=== PATIENT | male | born 1935 | race Caucasian/White ===

== ENCOUNTER → 2017-09-18 | Outpatient (CLI) | payer MEDICARE ==
--- NOTE | 2017-09-18 11:25 | Diagnostic Imaging Report ---
PROCEDURE:US RETROPERITONEAL ( KIDNEY ). COMPARISON:Patients [facility], US, US RETROPERITONEAL ( KIDNEY )., 04/26/2016, 10:36. INDICATIONS:CKD STAGE 3 TECHNIQUE: Whittaker-scale and color sonographic images of the bilateral kidneys and bladder where obtained in transverse and longitudinal planes. FINDINGS: RIGHT KIDNEY: Length: 11 cm Cysts: Multiple, measuring up to 4 cm Solid masses: None Stones: None Hydronephrosis: None Echogenicity: Diffusely hyperechoic LEFT KIDNEY: Length: 11.3 cm Cysts: Multiple, measuring up to 3.3 cm Solid masses: None Stones: None Hydronephrosis: None Echogenicity: Diffusely hyperechoic Bladder: Diffuse bladder wall thickening. Ureteral jets are visible. Prostate: Measures 5.6 x 4.9 x 4.6 cm. The contours are lobulated CONCLUSION: Increased renal echotexture consistent with medical renal disease. Bilateral renal cysts. Thickening of the bladder wall suggestive of outlet obstruction from prostate hypertrophy Dictated by: Izaiah Okeefe M.D. on 09/18/2017 at 11:26 Electronically approved by: Izaiah Okeefe M.D. on 09/18/2017 at 11:26
--- NOTE | 2017-09-18 11:42 | Diagnostic Imaging Report ---
PROCEDURE: RENAL DOPPLER ULTRASOUND COMPARISON:None. INDICATIONS:Hypertension FINDINGS: Multiple sagittal and axial images of the right and left kidneys were obtained. RIGHT KIDNEY: The right kidney measures 12.0 cm. The cortical thickness is 1.3 cm. The right kidney has increased echogenicity. There are no masses, hydronephrosis or calculi. The highest right main renal artery PSV is 91.7 cm/sec. The highest right hilar artery PSV is 67.2 cm/sec. The highest right arcuate artery PSV is 68.4 cm/sec. LEFT KIDNEY: The left kidney measures 12.0 cm. The cortical thickness is 1.2 cm. The left kidney has increased echogenicity. There are no masses, hydronephrosis or calculi. The highest left main renal artery PSV is 37.4 cm/sec. The highest left hilar artery PSV is 41 cm/sec. The highest left arcuate artery PSV is 52 cm/sec. The abdominal aorta PSV is 53.2 cm/sec. The right renal artery/aorta ratio is 1.7. The left renal artery/aorta ratio is 1.2. The right and left renal veins are patent. The bladder is unremarkable. CONCLUSION: 1. Increased renal cortical echogenicity may represent medical renal disease. 2. No sonographic evidence for renal artery stenosis. Dictated by: Shemar Diaz M.D. on 09/18/2017 at 11:42 Electronically approved by: Shemar Diaz M.D. on 09/18/2017 at 11:42
== END ==
LOC: US 08:19
PROVIDERS: ATTEND Internal Medicine Nephrology
DX: N18.3 Chronic kidney disease, stage 3 (moderate) (principal)
CPT/HCPCS: 76770; 93976

== ENCOUNTER → 2018-04-10 | Outpatient (CLI) | payer MEDICARE ==
--- NOTE | 2018-04-10 12:51 | Diagnostic Imaging Report ---
EXAM: CT Chest WITHOUT contrast 04/10/2018 10:04 AM INDICATION: \[id number] \S\[id number] \S\IDIOPATHIC INTRESTITIAL PNEUMONIA COMPARISON: None Technique: CT scan of the chest WITHOUT intravenous contrast, using standard protocol. Thin collimation scanning during the inspiratory and expiratory phases as well as in the prone position was performed. Sagittal and coronal multiplanar reformations were obtained. Coronal and sagittal reformats are provided. IV CONTRAST: None ORAL CONTRAST: None COMPLICATIONS: None RADIATION DOSE: Total DLP: 2114.9 mGy*cm Estimated effective dose: (DLP x 0.015 x size factor) mSv CTDIvol has been reviewed. It is below the limits set by the Radiation Protocol Committee (RPC). FINDINGS: LINES/ TUBES: None. LUNGS AND AIRWAYS: Incidental right upper lobe Azygous fissure. Mild bilateral central lower lobe predominant bronchiectasis. Subpleural reticulation of the lungs in both posterior lower lobes. Few scattered 2 to 3 mm peripheral pleural-based nodules, some of them calcified, for example in the right lower lobe on series 2, image 114. Otherwise, no consolidation, septal thickening, architectural distortion, or honeycombing. Few scattered thin-walled cystic changes throughout the lungs measuring up to 5 mm. Mosaic attenuation of the lungs consistent with bilateral air trapping. PLEURA: Multiple right greater than left calcified pleural plaques along both hemidiaphragms. No nodular pleural thickening or pneumothorax. Trace left pleural effusion. HEART AND MEDIASTINUM: Few nonspecific subcentimeter thyroid nodules measuring up to 0.7 cm on the right. Multiple nonspecific subcentimeter noncalcified mediastinal lymph nodes. Cardiomegaly. Trace pericardial effusion. Diffuse coronary artery calcifications. The status post CABG. Ectasia of the ascending thoracic aorta (4.5 cm). Moderate atherosclerotic calcifications of the aortic arch and descending thoracic segment. The main pulmonary artery is normal in caliber, measuring 2.9 cm in diameter. UPPER ABDOMEN: 3 cm low-attenuation cyst in the upper pole of the left kidney, incompletely provided on this exam. Mild bilateral perinephric fat stranding. BONES: Multilevel degenerative changes of the thoracic spine. SOFT TISSUES: Unremarkable. IMPRESSION: 1. Bilateral few calcified pleural plaques with mild nonspecific subpleural reticulation of the lungs suggestive of asbestos exposure or sequela of prior granulomatous disease. 2. Mild central bilateral bronchiectasis. No honeycombing. 3. 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 Recommend follow-up CT chest high resolution in 6 months. Signed by: Dr. Silvina Caraballo M.D. on 04/10/2018 12:48 PM
== END ==
LOC: CT 09:57
PROVIDERS: ATTEND Internal Medicine Pulmonary Disease
DX: J84.111 Idiopathic interstitial pneumonia, not otherwise specified (principal); Z86.711 Personal history of pulmonary embolism
CPT/HCPCS: 71250

== ENCOUNTER → 2018-05-11 | Outpatient (CLI) | payer MEDICARE ==
--- NOTE | 2018-05-11 11:24 | Diagnostic Imaging Report ---
EXAMINATION: Renal Doppler ultrasound. CLINICAL HISTORY :Hypertension COMPARISON: <None available.> TECHNIQUE: Grayscale and color Doppler evaluation of the kidneys and bladder was performed in transverse and longitudinal planes. Doppler interrogation of the main, hilar, segmental and arcuate renal arteries bilaterally as well as evaluation of the aorta were performed. DISCUSSION: RIGHT KIDNEY: The right kidney measures 12.1 cm in length and shows increased echogenicity. No hydronephrosis, shadowing calculi or solid mass lesions. Multiple cysts including the largest 4.5 cm interpolar region and 2.5 cm superior pole. Right main renal artery PSV is 68 cm/sec. Highest right segmental artery PSV is 20 cm/sec. Arterial waveforms are normal. The right renal artery PSV/aortic PSV ratio is 1.1. LEFT KIDNEY: The left kidney measures 11.3 cm in length and shows increased echogenicity. No hydronephrosis, shadowing calculi or solid mass lesions. Multiple cysts including the largest 3.4 cm inferior pole and 3 cm superior pole. Left main renal artery PSV is 62 cm/sec. Highest left segmental artery PSV is 43cm/sec. Arterial waveforms are normal. The left renal artery PSV/aortic PSV ratio is 1.0. Abdominal aortic PSV is 64 cm/sec. BLADDER: Unremarkable. Prostate is enlarged measuring 69 cc. IMPRESSION: Bilateral echogenic kidneys secondary to chronic medical renal disease. No obstruction. Bilateral simple renal cysts. No renal arteries stenosis Signed by: Dr. Adrián Collier M.D. on 05/11/2018 11:21 AM
== END ==
LOC: US 06:58
PROVIDERS: ATTEND Internal Medicine Nephrology
DX: N18.3 Chronic kidney disease, stage 3 (moderate) (principal)
CPT/HCPCS: 76770; 93976

== ENCOUNTER → 2021-04-05 | Outpatient (CLI) | payer MEDICARE | LOC: US 07:34 | PROVIDERS: ATTEND Internal Medicine Nephrology | DX: N18.9 Chronic kidney disease, unspecified (principal); N28.1 Cyst of kidney, acquired | CPT/HCPCS: 76770; 93976 ==

== ENCOUNTER 2022-04-13 16:38 | Inpatient (IN) | payer MEDICARE ==
[~2022-04-13] VITALS: Ht 193 cm; Wt 97.5 kg
[2022-04-13] MEDS ORDERED: ACETAMINOPHEN 325 MG TAB PO PRN (17:45)
[2022-04-13] MEDS ORDERED: SODIUM CHLORIDE 0.9% IV ONE (17:45)
[2022-04-13] MEDS ORDERED: SODIUM CHLORIDE FLUSH 10 ML SYR INJ PRN (17:45)
[2022-04-13] MEDS ORDERED: DIPHENHYDRAMINE HCL INJ 50 MG/ML VIAL IV PRN (17:45)
[2022-04-13] MEDS ORDERED: FUROSEMIDE INJ 10 MG/ML 4 ML VIAL IV ONE (17:45)
[2022-04-13] MEDS ORDERED: ELIQUIS2.5 MG PO (17:52)
[2022-04-13] MEDS ORDERED: FAMOTIDINE20 MG PO (17:54)
[2022-04-13] MEDS ORDERED: CLOPIDOGREL75 MG PO (17:54)
[2022-04-13] MEDS ORDERED: METOPROLOL TART50 MG PO (17:54)
[2022-04-13] MEDS ORDERED: TERAZOSIN HCL5 MG PO (17:54)
[2022-04-13] MEDS ORDERED: FARXIGA5 MG PO (17:56)
[2022-04-13] MEDS ORDERED: FUROSEMIDE40 MG PO (17:56)
[2022-04-13] MEDS ORDERED: DICYCLOMINE HCL10 MG PO (17:56)
[2022-04-13] MEDS ORDERED: CLONAZEPAM0.5 MG PO (17:56)
[2022-04-13] MEDS ORDERED: SODIUM CHLORIDE 0.9% 250ML 250 ML IV ONE (20:30)
[2022-04-13] MEDS ORDERED: HYDRALAZINE HCL 20 MG/ML VIAL IV PRN (20:45)
[2022-04-13 20:50] LABS: % IRON SATURATION 2 % (15-50); IRON 10 ug/dL (65-175); TOTAL IRON BINDING CAPACITY 407 ug/dL (261-478); TRANSFERRIN 291 mg/dL (174-364)
[2022-04-13 21:00] VITALS: BP 139/69
[2022-04-13] MEDS: CLONAZEPAM 0.5 MG TAB PO PRN (23:19)
[2022-04-14] VITALS (9 sets, daily range): BP systolic 111–144; BP diastolic 67–84
[2022-04-14] MEDS: METOPROLOL TARTRATE 50 MG TAB PO SCH ×3 (00:09→16:36)
[2022-04-14] MEDS: FUROSEMIDE INJ 10 MG/ML 2 ML VIAL IV PRN ×3 (01:09→18:15)
[2022-04-14 05:21] LABS: BASOPHILS % 0.4 % (0.0-1.0); EOSINOPHILS # (AUTO) 0.2 (0.0-0.4); EOSINOPHILS % 3.5 % (0.0-6.0); LYMPHOCYTES # (AUTO) 1.3 (1.0-3.2); LYMPHOCYTES % 29.1 % (18.0-39.1); MEAN CORPUSCULAR HEMOGLOBIN 24.5 pg (28-32); MEAN CORPUSCULAR HGB CONC 29.2 g/dL (31-35); MEAN CORPUSCULAR VOLUME 83.8 fL (81-99); MONOCYTES # (AUTO) 0.5 (0.2-0.8); MONOCYTES % 10.1 % (4.4-11.3); NEUTROPHILS # (AUTO) 2.6 (2.1-6.9); NEUTROPHILS % 56.7 % (38.7-80.0); PLATELET COUNT 167 x10e3/uL (140-360); RED BLOOD COUNT 2.29 x10e6/uL (4.3-5.7); RED CELL DISTRIBUTION WIDTH 16.2 % (11.7-14.4)
[2022-04-14 05:38] LABS: HEMATOCRIT 19.2 % (38.2-49.6); HEMOGLOBIN 5.6 g/dL (14.0-18.0)
[2022-04-14] MEDS ORDERED: SODIUM CHLORIDE 0.9% 1000ML 1,000 ML ONE (06:16)
[2022-04-14 06:36] LABS: ANION GAP 15.2 mmol/L (8-16); CALCIUM 9.3 mg/dL (8.4-10.2); CREATININE, SERUM 3.19 mg/dL (0.72-1.25); POTASSIUM 4.2 mmol/L (3.5-5.1)
[2022-04-14] MEDS ORDERED: SODIUM CHLORIDE 0.9% 250ML 250 ML IV ONE (07:30)
[2022-04-14] MEDS ORDERED: CLOPIDOGREL BISULFATE 75 MG TAB PO SCH (09:00)
[2022-04-14] MEDS ORDERED: CLONAZEPAM 0.5 MG TAB PO SCH (09:00)
[2022-04-14] MEDS ORDERED: METOPROLOL TARTRATE 50 MG TAB PO SCH (09:00)
[2022-04-14] MEDS ORDERED: APIXAB 2.5 MG TABLET PO SCH (09:00)
[2022-04-14] MEDS: NON-FORMULARY MEDICATION (Dapagliflozin Propanediol (Farxiga) 5 MG) PO SCH (09:00)
[2022-04-14] MEDS: TERAZOSIN HCL 5 MG CAP PO SCH (09:43)
[2022-04-14] MEDS: FUROSEMIDE 40 MG TAB PO SCH (09:43)
[2022-04-14] MEDS: DICYCLOMINE HCL 10 MG CAP PO SCH ×3 (09:44→16:36)
[2022-04-14 13:52] LABS: HEMATOCRIT 20.4 % (38.2-49.6); HEMOGLOBIN 6.3 g/dL (14.0-18.0)
[2022-04-14] MEDS ORDERED: SODIUM CHLORIDE 0.9% 250ML 250 ML ONE (15:35)
[2022-04-14 19:12] LABS: HEMATOCRIT 22.6 % (38.2-49.6)
[2022-04-14 19:15] LABS: HEMOGLOBIN 6.7 g/dL (14.0-18.0)
[2022-04-14] MEDS: IRON SUCROSE 100 MG in SODIUM CHLORIDE 0.9% 100 ML IV SCH (19:24)
[2022-04-14] MEDS: CLONAZEPAM 0.5 MG TAB PO PRN (23:35)
[2022-04-15] VITALS (7 sets, daily range): BP systolic 97–123; BP diastolic 54–76
[2022-04-15 00:01] LABS: INR 1.1; PROTHROMBIN TIME 15.2 seconds (11.9-14.5)
[2022-04-15 04:56] LABS: BASOPHILS % 0.4 % (0.0-1.0); EOSINOPHILS # (AUTO) 0.2 (0.0-0.4); EOSINOPHILS % 3.3 % (0.0-6.0); HEMATOCRIT 22.1 % (38.2-49.6); LYMPHOCYTES % 22.1 % (18.0-39.1); MEAN CORPUSCULAR HGB CONC 29.9 g/dL (31-35); MEAN CORPUSCULAR VOLUME 83.7 fL (81-99); MONOCYTES # (AUTO) 0.5 (0.2-0.8); MONOCYTES % 12.1 % (4.4-11.3); NEUTROPHILS # (AUTO) 2.8 (2.1-6.9); NEUTROPHILS % 61.9 % (38.7-80.0); PLATELET COUNT 167 x10e3/uL (140-360); RED BLOOD COUNT 2.64 x10e6/uL (4.3-5.7); RED CELL DISTRIBUTION WIDTH 16.5 % (11.7-14.4)
[2022-04-15 05:00] LABS: HEMOGLOBIN 6.6 g/dL (14.0-18.0)
[2022-04-15 05:17] LABS: ANION GAP 13.7 mmol/L (8-16); CALCIUM 9.4 mg/dL (8.4-10.2); CREATININE, SERUM 3.07 mg/dL (0.72-1.25); POTASSIUM 3.7 mmol/L (3.5-5.1)
[2022-04-15 05:35] LABS: INR 1.1; PROTHROMBIN TIME 15.2 seconds (11.9-14.5)
[2022-04-15] MEDS ORDERED: FUROSEMIDE INJ 10 MG/ML 2 ML VIAL IV ONE (06:30)
[2022-04-15] MEDS ORDERED: SODIUM CHLORIDE 0.9% 250ML 250 ML IV ONE ×2 (06:30→17:00)
[2022-04-15] MEDS: TERAZOSIN HCL 5 MG CAP PO SCH (09:00)
[2022-04-15] MEDS: NON-FORMULARY MEDICATION (Dapagliflozin Propanediol (Farxiga) 5 MG) PO SCH (09:00)
[2022-04-15] MEDS: DICYCLOMINE HCL 10 MG CAP PO SCH ×3 (09:39→17:05)
[2022-04-15] MEDS: METOPROLOL TARTRATE 50 MG TAB PO SCH ×2 (09:41→17:06)
[2022-04-15] MEDS: FUROSEMIDE 40 MG TAB PO SCH (09:42)
[2022-04-15] MEDS ORDERED: SODIUM CHLORIDE 0.9% 250ML 250 ML ONE (10:51)
[2022-04-15] MEDS ORDERED: BISACODYL 5 MG TAB EC PO ONE ×3 (11:30→15:30)
[2022-04-15] MEDS ORDERED: PEG (High)/E-LYTE SOLN 4,000 ML BTL PO ONE (16:00)
[2022-04-15 16:26] LABS: HEMATOCRIT 25.5 % (38.2-49.6); HEMOGLOBIN 7.7 g/dL (14.0-18.0)
[2022-04-15] MEDS ORDERED: FUROSEMIDE INJ 10 MG/ML 2 ML VIAL IV SCH (17:00)
[2022-04-15] MEDS: IRON SUCROSE 100 MG in SODIUM CHLORIDE 0.9% 100 ML IV SCH (17:06)
[2022-04-15] MEDS: CLONAZEPAM 0.5 MG TAB PO PRN (23:50)
[2022-04-16] VITALS (7 sets, daily range): BP systolic 121–140; BP diastolic 67–78
[2022-04-16] MEDS ORDERED: SODIUM CHLORIDE 0.9% 250ML 250 ML ONE (02:43)
[2022-04-16] MEDS: DICYCLOMINE HCL 10 MG CAP PO SCH ×3 (07:30→17:07)
[2022-04-16] MEDS: NON-FORMULARY MEDICATION (Dapagliflozin Propanediol (Farxiga) 5 MG) PO SCH (08:19)
[2022-04-16] MEDS: TERAZOSIN HCL 5 MG CAP PO SCH (08:19)
[2022-04-16] MEDS: FUROSEMIDE 40 MG TAB PO SCH (08:19)
[2022-04-16] MEDS: METOPROLOL TARTRATE 50 MG TAB PO SCH ×2 (08:19→17:00)
[2022-04-16 09:37] LABS: BASOPHILS % 0.7 % (0.0-1.0); EOSINOPHILS # (AUTO) 0.1 (0.0-0.4); EOSINOPHILS % 2.9 % (0.0-6.0); HEMATOCRIT 28.7 % (38.2-49.6); HEMOGLOBIN 8.8 g/dL (14.0-18.0); LYMPHOCYTES % 23.6 % (18.0-39.1); MEAN CORPUSCULAR HEMOGLOBIN 25.5 pg (28-32); MEAN CORPUSCULAR HGB CONC 30.7 g/dL (31-35); MEAN CORPUSCULAR VOLUME 83.2 fL (81-99); MONOCYTES # (AUTO) 0.6 (0.2-0.8); MONOCYTES % 13.4 % (4.4-11.3); NEUTROPHILS # (AUTO) 2.4 (2.1-6.9); NEUTROPHILS % 59.4 % (38.7-80.0); PLATELET COUNT 182 x10e3/uL (140-360); RED BLOOD COUNT 3.45 x10e6/uL (4.3-5.7); RED CELL DISTRIBUTION WIDTH 16.8 % (11.7-14.4)
[2022-04-16] MEDS ORDERED: KETAMINE HCL INJ 50 MG/ML 10 ML VIAL ONE (14:13)
[2022-04-16] MEDS ORDERED: FENTANYL CITRATE/PF 100MCG/2 ML INJ ONE (14:13)
[2022-04-16] MEDS ORDERED: PROPOFOL IV EMULSION 50 ML IV ONE (14:47)
[2022-04-16] MEDS ORDERED: HYOSCYAMINE SULFATE 0.5 MG/ML INJ ONE (14:47)
[2022-04-16] MEDS: IRON SUCROSE 100 MG in SODIUM CHLORIDE 0.9% 100 ML IV SCH (17:07)
[2022-04-16 17:11] LABS: HEMATOCRIT 28.5 % (38.2-49.6); HEMOGLOBIN 8.7 g/dL (14.0-18.0)
[2022-04-16 17:28] LABS: ANION GAP 16.5 mmol/L (8-16); CALCIUM 10.1 mg/dL (8.4-10.2); CREATININE, SERUM 3.03 mg/dL (0.72-1.25); POTASSIUM 3.5 mmol/L (3.5-5.1)
[2022-04-16] MEDS: CLONAZEPAM 0.5 MG TAB PO PRN (22:12)
[2022-04-17] VITALS: BP 120/58
[2022-04-17 04:00] VITALS: BP 122/82
[2022-04-17 07:44] VITALS: BP 126/72
[2022-04-17 07:53] VITALS: BP 126/72
[2022-04-17] MEDS: DICYCLOMINE HCL 10 MG CAP PO SCH ×2 (08:20→10:49)
[2022-04-17] MEDS: NON-FORMULARY MEDICATION (Dapagliflozin Propanediol (Farxiga) 5 MG) PO SCH (08:20)
[2022-04-17] MEDS: FUROSEMIDE 40 MG TAB PO SCH (08:21)
[2022-04-17] MEDS: TERAZOSIN HCL 5 MG CAP PO SCH (08:21)
[2022-04-17] MEDS: METOPROLOL TARTRATE 50 MG TAB PO SCH (08:22)
[2022-04-17] MEDS ORDERED: IRON SUCROSE 100 MG in SODIUM CHLORIDE 0.9% 100 ML IV ONE (09:15)
[2022-04-17 09:35] LABS: BASOPHILS % 0.4 % (0.0-1.0); EOSINOPHILS # (AUTO) 0.1 (0.0-0.4); EOSINOPHILS % 1.9 % (0.0-6.0); HEMOGLOBIN 8.2 g/dL (14.0-18.0); LYMPHOCYTES # (AUTO) 0.8 (1.0-3.2); LYMPHOCYTES % 16.7 % (18.0-39.1); MEAN CORPUSCULAR HEMOGLOBIN 25.5 pg (28-32); MEAN CORPUSCULAR HGB CONC 30.4 g/dL (31-35); MEAN CORPUSCULAR VOLUME 84.1 fL (81-99); MONOCYTES # (AUTO) 0.6 (0.2-0.8); NEUTROPHILS # (AUTO) 3.2 (2.1-6.9); NEUTROPHILS % 68.8 % (38.7-80.0); PLATELET COUNT 153 x10e3/uL (140-360); RED BLOOD COUNT 3.21 x10e6/uL (4.3-5.7); RED CELL DISTRIBUTION WIDTH 17.1 % (11.7-14.4)
[2022-04-17 09:52] LABS: ANION GAP 16.2 mmol/L (8-16); CALCIUM 9.5 mg/dL (8.4-10.2); CREATININE, SERUM 2.88 mg/dL (0.72-1.25); POTASSIUM 3.2 mmol/L (3.5-5.1)
[2022-04-17] MEDS ORDERED: POTASSIUM CHLORIDE 10MEQ EA PO NR (10:15)
[2022-04-17 11:49] VITALS: BP 107/64
== END 2022-04-17 12:35 | disposition home or self-care (01) | DRG 377 ==
LOC: FSED 16:42 → ERHOLD 17:51 → MED/SURG 21:05
PROVIDERS: ADMIT Internal Medicine; ATTEND Internal Medicine
PROC: 30233N1 Transfusion of Nonautologous Red Blood Cells into Peripheral Vein, Percutaneous Approach (ICD-10-PCS; principal; 2022-04-13)
PROC: 0DB68ZX Excision of Stomach, Via Natural or Artificial Opening Endoscopic, Diagnostic (ICD-10-PCS; 2022-04-16)
PROC: 0DBK8ZX Excision of Ascending Colon, Via Natural or Artificial Opening Endoscopic, Diagnostic (ICD-10-PCS; 2022-04-16)
PROC: 0DBM8ZX Excision of Descending Colon, Via Natural or Artificial Opening Endoscopic, Diagnostic (ICD-10-PCS; 2022-04-16)
PROC: 0DBH8ZX Excision of Cecum, Via Natural or Artificial Opening Endoscopic, Diagnostic (ICD-10-PCS; 2022-04-16)
PROC: 0W3P8ZZ Control Bleeding in Gastrointestinal Tract, Via Natural or Artificial Opening Endoscopic (ICD-10-PCS; 2022-04-16)
PROC: 0DB98ZX Excision of Duodenum, Via Natural or Artificial Opening Endoscopic, Diagnostic (ICD-10-PCS; 2022-04-16 15:00)
DX: K55.21 Angiodysplasia of colon with hemorrhage (principal); I50.23 Acute on chronic systolic (congestive) heart failure; I13.0 Hypertensive heart and chronic kidney disease with heart failure and stage 1 through stage 4 chronic kidney disease, or unspecified chronic kidney disease; R64 Cachexia; N18.4 Chronic kidney disease, stage 4 (severe); D62 Acute posthemorrhagic anemia; N40.0 Benign prostatic hyperplasia without lower urinary tract symptoms; K20.90 Esophagitis, unspecified without bleeding; K29.70 Gastritis, unspecified, without bleeding; D13.2 Benign neoplasm of duodenum; K63.5 Polyp of colon; K57.30 Diverticulosis of large intestine without perforation or abscess without bleeding; K62.1 Rectal polyp; K64.8 Other hemorrhoids; D63.1 Anemia in chronic kidney disease; Z79.01 Long term (current) use of anticoagulants; Z95.1 Presence of aortocoronary bypass graft; I25.10 Atherosclerotic heart disease of native coronary artery without angina pectoris; I48.0 Paroxysmal atrial fibrillation; I34.0 Nonrheumatic mitral (valve) insufficiency; K21.9 Gastro-esophageal reflux disease without esophagitis; J61 Pneumoconiosis due to asbestos and other mineral fibers; Z95.5 Presence of coronary angioplasty implant and graft; Z88.7 Allergy status to serum and vaccine; Z86.711 Personal history of pulmonary embolism; Z86.718 Personal history of other venous thrombosis and embolism; Z68.26 Body mass index [BMI] 26.0-26.9, adult
CPT/HCPCS: 0223U; 36415; 43239; 45385; 71046; 71250; 74176; 80048; 80053; 82270; 82553; 82607; 82746; 83540; 83880; 84466; 84484; 85014; 85018; 85025; 85610; 85730; 86850; 86900; 86920; 88304; 88305; 88312; 88342; 93005; 94799; 99284; J1756; J1940; J1980; J3010; J7030; J7050; P9016

== ENCOUNTER 2022-05-17 07:45 | Emergency (ER) | payer MEDICARE ==
[~2022-05-17] VITALS: Ht 188 cm; Wt 100.2 kg
[~2022-05-17 07:45] MED LIST: CLONAZEPAM0.5 MG PO; CLOPIDOGREL75 MG PO; DICYCLOMINE HCL10 MG PO; ELIQUIS2.5 MG PO; FAMOTIDINE20 MG PO; FARXIGA5 MG PO; FUROSEMIDE40 MG PO; METOPROLOL TART50 MG PO; TERAZOSIN HCL5 MG PO
[2022-05-17] MEDS ORDERED: CARAFATE1 GM/10 ML PO (08:22)
[2022-05-17] MEDS ORDERED: SODIUM BICARBO650 MG PO (08:22)
[2022-05-17] MEDS ORDERED: FEROSUL325 MG PO (08:22)
[2022-05-17] MEDS ORDERED: PROCRIT10000 UNIT INJ (08:22)
[2022-05-17] MEDS ORDERED: DOCUSATE SODIU100 MG PO (08:22)
[2022-05-17] MEDS ORDERED: PROTONIX20 MG PO (08:22)
[2022-05-17] MEDS ORDERED: FUROSEMIDE INJ 10 MG/ML 4 ML VIAL IV ONE (08:45)
[2022-05-17] MEDS ORDERED: FUROSEMIDE INJ 10 MG/ML 4 ML VIAL ONE (09:07)
[2022-05-17] MEDS ORDERED: FUROSEMIDE40 MG PO (09:37)
[2022-05-17] MEDS ORDERED: CEFDINIR300 MG PO (10:23)
== END 2022-05-17 09:15 | disposition home or self-care (01) ==
LOC: FSED 08:10
DX: I13.0 Hypertensive heart and chronic kidney disease with heart failure and stage 1 through stage 4 chronic kidney disease, or unspecified chronic kidney disease (principal); N18.4 Chronic kidney disease, stage 4 (severe); I50.9 Heart failure, unspecified; I48.0 Paroxysmal atrial fibrillation; Z95.1 Presence of aortocoronary bypass graft; I25.10 Atherosclerotic heart disease of native coronary artery without angina pectoris; J20.9 Acute bronchitis, unspecified; D64.9 Anemia, unspecified; K21.9 Gastro-esophageal reflux disease without esophagitis; Z96.653 Presence of artificial knee joint, bilateral; Z96.641 Presence of right artificial hip joint; Z87.891 Personal history of nicotine dependence; Z88.7 Allergy status to serum and vaccine
CPT/HCPCS: 71046; 80053; 82553; 83880; 84484; 85025; 96374; 99284; J1940; 93005

== ENCOUNTER 2022-08-26 09:11 | Emergency (ER) | payer MEDICARE ==
[~2022-08-26] VITALS: Ht 193 cm; Wt 93.4 kg
[~2022-08-26 09:11] MED LIST changes: +CARAFATE1 GM/10 ML PO; +CEFDINIR300 MG PO; +DOCUSATE SODIU100 MG PO; +FEROSUL325 MG PO; +PROCRIT10000 UNIT INJ; +PROTONIX20 MG PO; +SODIUM BICARBO650 MG PO
[2022-08-26] MEDS ORDERED: METOPROLOL TAR100 MG PO (10:02)
[2022-08-26] MEDS ORDERED: KLONOPIN0.5 MG PO ×2 (15:01→15:02)
== END 2022-08-26 10:47 | disposition home or self-care (01) ==
LOC: FSED 09:16
DX: R06.02 Shortness of breath (principal); I48.91 Unspecified atrial fibrillation; I10 Essential (primary) hypertension; N19 Unspecified kidney failure; I50.9 Heart failure, unspecified; D64.9 Anemia, unspecified; G47.00 Insomnia, unspecified; R94.31 Abnormal electrocardiogram [ECG] [EKG]
CPT/HCPCS: 71046; 80053; 82553; 83880; 84484; 85025; 93005; 99284